=== PATIENT | female | born 1960 | race Caucasian/White ===

== ENCOUNTER → 2016-11-28 | Outpatient (CLI) | payer OTHER ==
[~2016-11-28] MED LIST: AMLO5TAB2 PO; CARB100C CHEW; GABA300C5 PO; STERILE WATER FOR INJECTION 10 ML VIAL ONE
--- NOTE | 2016-11-28 17:24 | RADRPT ---
EXAM DATE/TIME: 11/28/2016 14:30 [place] COMPARISON: No previous studies available for comparison. INDICATIONS : Left sided facial infection. RADIATION DOSE: 56.76 CTDIvol (mGy) MEDICAL HISTORY : None SURGICAL HISTORY : None. ENCOUNTER: Initial ACUITY: 4 - 6 months PAIN SCORE: 0/10 LOCATION: Left facial TECHNIQUE: Volumetric scanning of the orbits was performed. Using automated exposure control and adjustment of the mA and/or kV according to patient size, radiation dose was kept as low as reasonably achievable t o obtain optimal diagnostic quality images. FINDINGS: Attempt was made to localize a fistula track on the left side of the face. Under careful inspection with good lightening and a magnifying glass I can see no open fissure. Limited CT scan through this area reveals very minimal calcifications in the subcutaneous tissue. Th is is confined to the subcutaneous tissues and does not extend to or involve the bone. I am not sure what this represents. Most likely etiology would be a chronic inflammatory process. Incidental sinus disease is evident. CONCLUSION: I was unable to localize the fistula to inject... Abdirahman Perez MD FACR on November 28, 2016 at 17:03 Board Certified Radiologist. This report was verified electronically.
== END ==
LOC: HRAD 13:51
PROVIDERS: ATTEND Plastic Surgery
DX: L98.9 Disorder of the skin and subcutaneous tissue, unspecified (principal)
CPT/HCPCS: 70480